=== PATIENT | female | born 1960 | race African-American/Black ===

== ENCOUNTER 2020-01-16 16:59 | Emergency (ER) | payer MEDICAID ==
[~2020-01-16] VITALS: Ht 165.1 cm; Wt 61.0 kg
[2020-01-16] MEDS ORDERED: IBUPROFEN 600MG TABLET PO STA (17:31)
[2020-01-16 17:54] LABS: BASOPHILS % 0.5 % (0.0-2.0); EOSINOPHILS % 1.6 % (0.0-5.0); HEMATOCRIT. 43.4 % (36.0-48.0); HEMOGLOBIN. 14.1 g/dL (12.0-16.0); LYMPHOCYTES % 36.1 % (20.0-50.0); MEAN CORPUSCULAR HEMOGLOBIN 29.7 pg (28.0-32.0); MEAN PLATELET VOLUME 7.4 fl (7.4-10.4); MONOCYTES % 5.3 % (2.0-8.0); NEUTROPHILS % 56.5 % (40.0-76.0); PLATELET 279 x1000/uL (130-400); RED BLOOD CELL COUNT 4.77 mill/uL (4.2-5.4); RED CELL DISTRIBUTION WIDTH 13.9 % (11.6-14.6)
[2020-01-16 17:59] LABS: CHLORIDE 100 mEq/L (98-107)
[2020-01-16 22:50] VITALS: BP 143/75
== END 2020-01-16 22:57 ==
LOC: ER 16:59
DX: R07.89 Other chest pain (principal); E11.9 Type 2 diabetes mellitus without complications; I10 Essential (primary) hypertension; Z88.2 Allergy status to sulfonamides
CPT/HCPCS: 36415; 71045; 80053; 84484; 85025; 93005; 99285

== ENCOUNTER 2022-09-24 11:25 | Inpatient (IN) | payer MEDICARE ==
[~2022-09-24] VITALS: Ht 160 cm; Wt 74.4 kg
[~2022-09-24 11:25] MED LIST: ATOR20TA65 PO; BENZ1TAB7 PO; DIPH-892 PO; DOCU100T PO; FLUO20CA39 PO; GLIP10TA10 PO; HALO2TAB PO; HYDR25TA PO; IBUP-2029 PO; INSU100I28 SQ; LISI-186 PO; METF-873 PO; PALI234D IM; QUET400T12 PO; TOPUD PO
[2022-09-24] MEDS: SODIUM CHLORIDE 0.9% 1,000 ML IV ONE ×2 (11:45→12:40)
[2022-09-24] MEDS ORDERED: NITROGLYCERIN OINT 1GM/INCH UDPKT TD ONE (12:00)
[2022-09-24] MEDS ORDERED: ASPIRIN 81MG TABLET PO ONE (12:00)
[2022-09-24 12:14] LABS: BASOPHILS % 0.6 % (0.0-2.0); EOSINOPHILS % 1.3 % (0.0-5.0); HEMATOCRIT. 38.4 % (36.0-48.0); HEMOGLOBIN. 12.8 g/dL (12.0-16.0); LYMPHOCYTES % 16.6 % (20.0-50.0); MEAN CORPUSCULAR HEMOGLOBIN 29.1 pg (28.0-32.0); MEAN CORPUSCULAR VOLUME 87.4 fL (81.0-99.0); MEAN PLATELET VOLUME 7.9 fl (7.4-10.4); NEUTROPHILS % 77.5 % (40.0-76.0); PLATELET 317 x1000/uL (130-400); RED BLOOD CELL COUNT 4.39 mill/uL (4.2-5.4); RED CELL DISTRIBUTION WIDTH 15.5 % (11.6-14.6)
[2022-09-24 12:25] LABS: D-DIMER 0.37 mg/L FEU (<0.50); PROTHROMBIN TIME 10.8 sec (9.6-11.0)
[2022-09-24 12:50] LABS: CHLORIDE 102 mEq/L (98-107)
[2022-09-24 12:57] LABS: BETA HYDROXYBUTYRATE 0.2 mMol/L (0.0-0.3)
[2022-09-24] MEDS ORDERED: INSULIN REGULAR (HUMULIN R) 300UNITS/3ML VIAL SUBCUT SCH (13:00)
[2022-09-24] MEDS ORDERED: PIPERACILLIN/TAZ 3.375G PREMIX 50 ML IV ONE (13:15)
[2022-09-24] MEDS ORDERED: SODIUM CHLORIDE 0.9% 1000ML BAG (SEPSIS BOLUS) IV ONE (13:15)
[2022-09-24 14:46] LABS: CLARITY URINE CLEAR (CLEAR); COLOR URINE YELLOW (YELLOW); KETONES URINE NEGATIVE (NEGATIVE); LEUKOCYTE ESTERASE URINE NEGATIVE (NEGATIVE); NITRITE URINE NEGATIVE (NEGATIVE); OCCULT BLOOD URINE NEGATIVE (NEGATIVE); PH URINE 5.5 (4.5-8.0); PROTEIN URINE NEGATIVE (NEGATIVE); SPECIFIC GRAVITY URINE 1.041 (1.005-1.030); UROBILINOGEN URINE 0.2 E.U./dL (0.2-1.0)
[2022-09-24] MEDS ORDERED: PIPERACILLIN/TAZOBACTAM 3.375GM/50ML PREMIX IV ONE (16:30)
[2022-09-24] MEDS ORDERED: DEXTROSE 50% WATER 50ML SYRINGE IV PRN (16:30)
[2022-09-24] MEDS ORDERED: ACETAMINOPHEN 325MG TABLET PO PRN ×2 (16:45)
[2022-09-24] MEDS ORDERED: HYDROCODONE/ACETAMINOPHEN 5/325MG TABLET PO PRN (16:45)
[2022-09-24] MEDS ORDERED: HYDROCODONE/ACETAMINOPHEN 10/325MG TABLET PO PRN (16:45)
[2022-09-24] MEDS ORDERED: BISACODYL 5MG TABLET PO PRN (16:45)
[2022-09-24 17:00] VITALS: BP 158/78
[2022-09-24] MEDS: BLOOD SUGAR DIAGNOSTIC STRIP TEST SCH ×3 (17:00→21:24)
[2022-09-24 17:50] VITALS: BP 158/78
[2022-09-24] MEDS: INSULIN LISPRO 100 UNITS/ML SUBCUT SCH ×2 (18:10→21:25)
[2022-09-24 20:00] VITALS: BP 143/87
[2022-09-24] MEDS ORDERED: IOHEXOL-350 100 ML BOTTLE ONE (20:28)
[2022-09-24] MEDS: QUETIAPINE FUMARATE 50MG TABLET PO SCH (21:23)
[2022-09-24] MEDS: PIPERACILLIN/TAZOBACTAM 3.375G in DEXT 5% WATER 50ML IV SCH (21:24)
[2022-09-24] MEDS: ATORVASTATIN CALCIUM 20MG TABLET PO SCH (21:24)
[2022-09-24 23:54] LABS: CREATINE KINASE MB FRACTION 1.6 ng/mL (0.5-3.6)
[2022-09-25] VITALS: BP 142/71
[2022-09-25 04:00] VITALS: BP 137/64
[2022-09-25 04:14] LABS: BASOPHILS % 0.2 % (0.0-2.0); EOSINOPHILS % 2.3 % (0.0-5.0); HEMOGLOBIN. 11.3 g/dL (12.0-16.0); LYMPHOCYTES % 22.4 % (20.0-50.0); MEAN CORPUSCULAR HEMOGLOBIN 28.7 pg (28.0-32.0); MEAN PLATELET VOLUME 7.4 fl (7.4-10.4); MONOCYTES % 6.6 % (2.0-8.0); NEUTROPHILS % 68.5 % (40.0-76.0); PLATELET 313 x1000/uL (130-400); RED BLOOD CELL COUNT 3.95 mill/uL (4.2-5.4)
[2022-09-25 04:23] LABS: CHLORIDE 112 mEq/L (98-107)
[2022-09-25 04:32] LABS: CREATINE KINASE MB FRACTION 1.6 ng/mL (0.5-3.6)
[2022-09-25] MEDS: INSULIN LISPRO 100 UNITS/ML SUBCUT SCH ×4 (05:43→20:54)
[2022-09-25] MEDS: PIPERACILLIN/TAZOBACTAM 3.375G in DEXT 5% WATER 50ML IV SCH ×3 (05:43→20:53)
[2022-09-25] MEDS: BLOOD SUGAR DIAGNOSTIC STRIP TEST SCH ×4 (05:43→20:55)
[2022-09-25 08:00] VITALS: BP 130/79
[2022-09-25] MEDS: ENOXAPARIN 40MG/0.4ML SYR SUBCUT SCH (09:10)
[2022-09-25] MEDS: ASPIRIN 81MG TABLET PO SCH (09:10)
[2022-09-25] MEDS: FLUOXETINE HCL 20MG CAPSULE PO SCH (09:11)
[2022-09-25] MEDS: PANTOPRAZOLE SODIUM 40 MG/VIAL IV SCH (09:11)
[2022-09-25] MEDS: LISINOPRIL 5MG TABLET PO SCH (09:14)
[2022-09-25] MEDS: HYDROCHLOROTHIAZIDE 25MG TABLET PO SCH (09:15)
[2022-09-25 12:00] VITALS: BP 125/62
[2022-09-25] MEDS ORDERED: NALOXONE HCL 0.4MG/ML VIAL IV PRN (14:00)
[2022-09-25 16:00] VITALS: BP 118/74
[2022-09-25 16:21] LABS: CREATINE KINASE MB FRACTION 1.7 ng/mL (0.5-3.6)
[2022-09-25 20:00] VITALS: BP 121/71
[2022-09-25] MEDS ORDERED: IOHEXOL-300 100 ML BOTTLE ONE (20:24)
[2022-09-25] MEDS: BENZTROPINE MESYLATE 1MG TABLET PO SCH (20:54)
[2022-09-25] MEDS: QUETIAPINE FUMARATE 50MG TABLET PO SCH (20:54)
[2022-09-25] MEDS: ATORVASTATIN CALCIUM 20MG TABLET PO SCH (20:54)
[2022-09-26] VITALS (7 sets, daily range): BP systolic 108–137; BP diastolic 59–74
[2022-09-26] MEDS: BLOOD SUGAR DIAGNOSTIC STRIP TEST SCH ×4 (05:26→20:11)
[2022-09-26] MEDS: INSULIN LISPRO 100 UNITS/ML SUBCUT SCH ×4 (05:27→20:11)
[2022-09-26] MEDS: LACTULOSE 20G/30ML UDC PO SCH ×4 (05:27→20:10)
[2022-09-26 05:55] LABS: BASOPHILS % 0.2 % (0.0-2.0); EOSINOPHILS % 3.6 % (0.0-5.0); HEMATOCRIT. 35.7 % (36.0-48.0); HEMOGLOBIN. 12.2 g/dL (12.0-16.0); LYMPHOCYTES % 16.2 % (20.0-50.0); MEAN CORPUSCULAR HEMOGLOBIN 29.2 pg (28.0-32.0); MEAN CORPUSCULAR VOLUME 85.8 fL (81.0-99.0); MEAN PLATELET VOLUME 7.9 fl (7.4-10.4); MONOCYTES % 5.1 % (2.0-8.0); NEUTROPHILS % 74.9 % (40.0-76.0); PLATELET 348 x1000/uL (130-400); RED BLOOD CELL COUNT 4.16 mill/uL (4.2-5.4); RED CELL DISTRIBUTION WIDTH 15.8 % (11.6-14.6)
[2022-09-26 07:05] LABS: CHLORIDE 101 mEq/L (98-107)
[2022-09-26 07:17] LABS: PHOSPHORUS 5.2 mg/dL (2.5-4.9)
[2022-09-26] MEDS: ENOXAPARIN 40MG/0.4ML SYR SUBCUT SCH (09:11)
[2022-09-26] MEDS: PANTOPRAZOLE SODIUM 40 MG/VIAL IV SCH (09:11)
[2022-09-26] MEDS: HYDROCHLOROTHIAZIDE 25MG TABLET PO SCH (09:11)
[2022-09-26] MEDS: ASPIRIN 81MG TABLET PO SCH (09:11)
[2022-09-26] MEDS: FLUOXETINE HCL 20MG CAPSULE PO SCH (09:13)
[2022-09-26] MEDS: LISINOPRIL 5MG TABLET PO SCH (09:13)
[2022-09-26] MEDS: BENZTROPINE MESYLATE 1MG TABLET PO SCH (20:11)
[2022-09-26] MEDS: ATORVASTATIN CALCIUM 20MG TABLET PO SCH (20:11)
[2022-09-26] MEDS ORDERED: QUETIAPINE FUMARATE 200MG TABLET PO SCH (21:00)
[2022-09-27] VITALS: BP 120/65
[2022-09-27 04:00] VITALS: BP 98/48
[2022-09-27 04:42] VITALS: BP 124/63
[2022-09-27] MEDS: LACTULOSE 20G/30ML UDC PO SCH (05:34)
[2022-09-27] MEDS: INSULIN LISPRO 100 UNITS/ML SUBCUT SCH (05:34)
[2022-09-27] MEDS: BLOOD SUGAR DIAGNOSTIC STRIP TEST SCH (05:34)
[2022-09-27 06:34] LABS: BASOPHILS % 0.2 % (0.0-2.0); HEMATOCRIT. 36.6 % (36.0-48.0); LYMPHOCYTES % 16.2 % (20.0-50.0); MEAN CORPUSCULAR HEMOGLOBIN 28.4 pg (28.0-32.0); MEAN CORPUSCULAR VOLUME 86.6 fL (81.0-99.0); MEAN PLATELET VOLUME 7.8 fl (7.4-10.4); MONOCYTES % 5.7 % (2.0-8.0); NEUTROPHILS % 74.9 % (40.0-76.0); PLATELET 341 x1000/uL (130-400); RED BLOOD CELL COUNT 4.23 mill/uL (4.2-5.4); RED CELL DISTRIBUTION WIDTH 15.5 % (11.6-14.6)
[2022-09-27 06:56] LABS: CHLORIDE 105 mEq/L (98-107)
[2022-09-27 08:00] VITALS: BP 112/69
[2022-09-27] MEDS: HYDROCHLOROTHIAZIDE 25MG TABLET PO SCH (08:19)
[2022-09-27] MEDS: ASPIRIN 81MG TABLET PO SCH (08:19)
[2022-09-27] MEDS: FLUOXETINE HCL 20MG CAPSULE PO SCH (08:19)
[2022-09-27] MEDS: PANTOPRAZOLE SODIUM 40 MG/VIAL IV SCH (08:19)
[2022-09-27] MEDS: LISINOPRIL 5MG TABLET PO SCH (08:19)
[2022-09-27] MEDS: ENOXAPARIN 40MG/0.4ML SYR SUBCUT SCH (08:20)
== END 2022-09-27 09:52 | disposition home or self-care (01) | DRG 247 ==
LOC: ER 11:44 → 7WST 14:29 → EDBEDREQTM 14:38 → EDBEDREQ 14:38 → EDBEDREQTM 14:39
PROVIDERS: ADMIT Internal Medicine; ATTEND Internal Medicine
DX: K56.600 Partial intestinal obstruction, unspecified as to cause (principal); E11.649 Type 2 diabetes mellitus with hypoglycemia without coma; M94.0 Chondrocostal junction syndrome [Tietze]; E11.65 Type 2 diabetes mellitus with hyperglycemia; Z20.822 Contact with and (suspected) exposure to COVID-19; F20.9 Schizophrenia, unspecified; F17.210 Nicotine dependence, cigarettes, uncomplicated; I10 Essential (primary) hypertension; Z88.2 Allergy status to sulfonamides; Z88.8 Allergy status to other drugs, medicaments and biological substances; Z79.899 Other long term (current) drug therapy
CPT/HCPCS: 36415; 71045; 71275; 74018; 74177; 80048; 80053; 81003; 82010; 82553; 82962; 83036; 83605; 83735; 83880; 84100; 84145; 84484; 85025; 85379; 87426; 93005; 99285; C9113; C9803; J1650; J1815; J2543; J7030; J7060; Q9967

== ENCOUNTER 2022-12-03 14:01 | Emergency (ER) | payer MEDICAID, MEDICARE ==
[~2022-12-03] VITALS: Ht 162.6 cm; Wt 80.0 kg
[~2022-12-03 14:01] MED LIST changes: -BENZ1TAB7 PO; +BENZ1TAB78 PO; -DIPH-892 PO; +DIPH-954 PO
[2022-12-03] MEDS ORDERED: SODIUM CHLORIDE 0.9% 1,000 ML IV ONE (15:15)
[2022-12-03 16:25] LABS: BASOPHILS % 0.4 % (0.0-2.0); EOSINOPHILS % 0.9 % (0.0-5.0); HEMATOCRIT. 38.6 % (36.0-48.0); HEMOGLOBIN. 12.6 g/dL (12.0-16.0); MEAN CORPUSCULAR HEMOGLOBIN 28.1 pg (28.0-32.0); MEAN PLATELET VOLUME 7.5 fl (7.4-10.4); MONOCYTES % 5.4 % (2.0-8.0); NEUTROPHILS % 66.3 % (40.0-76.0); PLATELET 330 x1000/uL (130-400); RED BLOOD CELL COUNT 4.49 mill/uL (4.2-5.4); RED CELL DISTRIBUTION WIDTH 15.4 % (11.6-14.6)
[2022-12-03 16:27] LABS: CHLORIDE 104 mEq/L (98-107)
[2022-12-03 17:20] LABS: CLARITY URINE CLEAR (CLEAR); COLOR URINE YELLOW (YELLOW); KETONES URINE NEGATIVE (NEGATIVE); LEUKOCYTE ESTERASE URINE TRACE (NEGATIVE); NITRITE URINE NEGATIVE (NEGATIVE); OCCULT BLOOD URINE NEGATIVE (NEGATIVE); PROTEIN URINE NEGATIVE (NEGATIVE); SPECIFIC GRAVITY URINE 1.031 (1.005-1.030); UROBILINOGEN URINE 0.2 E.U./dL (0.2-1.0)
[2022-12-03] MEDS ORDERED: INSU100I24 SQ (17:40)
[2022-12-03] MEDS ORDERED: CEPH500C2 MT (17:40)
[2022-12-03 20:26] VITALS: BP 133/85
== END 2022-12-03 20:28 | disposition home or self-care (01) ==
LOC: ER 14:01
DX: E11.65 Type 2 diabetes mellitus with hyperglycemia (principal); I10 Essential (primary) hypertension; F20.9 Schizophrenia, unspecified; R53.1 Weakness; E11.9 Type 2 diabetes mellitus without complications
CPT/HCPCS: 36415; 70450; 71045; 80053; 81003; 84484; 85025; 99285; J7030

== ENCOUNTER 2023-01-11 09:32 | Emergency (ER) | payer MEDICAID, MEDICARE ==
[~2023-01-11] VITALS: Ht 165.1 cm; Wt 77.0 kg
[~2023-01-11 09:32] MED LIST changes: +CEPH500C2 MT; +INSU100I24 SQ
[2023-01-11] MEDS ORDERED: SODIUM CHLORIDE 0.9% 1,000 ML IV ONE (09:45)
[2023-01-11 10:32] LABS: BASOPHILS % 0.3 % (0.0-2.0); EOSINOPHILS % 0.9 % (0.0-5.0); HEMATOCRIT. 36.5 % (36.0-48.0); HEMOGLOBIN. 12.1 g/dL (12.0-16.0); MEAN CORPUSCULAR HEMOGLOBIN 28.6 pg (28.0-32.0); MEAN CORPUSCULAR VOLUME 86.3 fL (81.0-99.0); MEAN PLATELET VOLUME 7.6 fl (7.4-10.4); NEUTROPHILS % 74.8 % (40.0-76.0); PLATELET 296 x1000/uL (130-400); RED BLOOD CELL COUNT 4.22 mill/uL (4.2-5.4); RED CELL DISTRIBUTION WIDTH 15.2 % (11.6-14.6)
[2023-01-11 10:40] LABS: CHLORIDE 104 mEq/L (98-107)
[2023-01-11 10:49] LABS: BETA HYDROXYBUTYRATE 0.1 mMol/L (0.0-0.3)
[2023-01-11] MEDS ORDERED: TOPUD PO (10:55)
[2023-01-11 11:20] VITALS: BP 138/88
== END 2023-01-11 11:22 | disposition home or self-care (01) ==
LOC: ER 09:32 → CANBEDREQ 11:04 → ER 11:22
DX: E11.65 Type 2 diabetes mellitus with hyperglycemia (principal); Z86.59 Personal history of other mental and behavioral disorders; I10 Essential (primary) hypertension; E78.00 Pure hypercholesterolemia, unspecified; Z79.899 Other long term (current) drug therapy; Z98.890 Other specified postprocedural states
CPT/HCPCS: 36415; 71045; 80053; 82010; 82962; 84484; 85025; 93005; 99285; J7030